=== PATIENT | male | born 1980 | race Hispanic/Latino ===

== ENCOUNTER 2018-01-29 13:03 | Observation (INO) | payer OTHER ==
[~2018-01-29] VITALS: Ht 182.9 cm; Wt 95.3 kg
--- NOTE | 2018-01-29 14:23 | ED GENERAL ADULT ---
History of Present Illness General Chief Complaint: Low Back Pain/Injury Stated Complaint: BIBA R HIP/SCIATIC PAIN Source: patient Exam Limitations: no limitations Vital Signs & Intake/Output Vital Signs & Intake/Output Vital Signs Date Time Temp Pulse Resp B/P B/P Pulse O2 O2 Flow FiO2 Mean Ox Delivery Rate 01/29 1829 98.0 78 18 132/84 100 Room Air Room Air 01/29 1521 Room Air 01/29 1354 97.0 98 18 125/86 98 Room Air Allergies Coded Allergies: No Known Allergies (01/29/18) Triage Note: R SCIATIC PAIN THAT RADIATES TO CALF, SEEN MONDAY AT WALK IN AND PUT ON PREDNISONE 20MG, FLEXERIL AND TYLENOL 1G WITHOUT ANY RELIEF. PAIN TO GLUTEUS SO BAD AT THIS POINT HE CANNOT WALK. DENIES LUMBOSACRAL PAIN OR INJURY. DENIES NUMBNESS. Triage Nurses Notes Reviewed? yes Onset: Gradual Duration: day(s): Timing: CONSTANT HPI: 37 y/o otherwise healthy male presenting with right low back pain radiating to the RLE x5 days. Reports the pain radiates to his mid calf, and is worse with movement. Began while walking, but denies any strenuous activity or trauma. Was seen at an urgent care and given tylenol, flexeril, and prednisone, which he has been taking around the clock without relief. States the pain is so bad now he can barely walk. Denies fevers, IVDU, saddle anestheisas, dysuria, urinary/bowel incontinence/retention. (Kemi Hardwick) Past History Travel History Traveled to [place] past 21 day No Medical History Any Pertinent Medical History? none Neurological: NONE EENT: NONE Cardiovascular: NONE Respiratory: NONE Gastrointestinal: NONE Hepatic: NONE Renal: NONE Musculoskeletal: NONE Psychiatric: NONE Endocrine: NONE Surgical History Surgical History: non-contributory Psychosocial History What is your primary language Czech Tobacco Use: Never used Family History Hx Contributory? No (Kemi Hardwick) Review of Systems Review of Systems Constitutional: Reports: no symptoms. EENTM: Reports: no symptoms. Respiratory: Reports: no symptoms. Cardiovascular: Reports: no symptoms. GI: Reports: no symptoms. Genitourinary: Reports: no symptoms. Musculoskeletal: Reports: see HPI. Skin: Reports: no symptoms. Neurological/Psychological: Reports: no symptoms. Hematologic/Endocrine: Reports: no symptoms. Immunologic/Allergic: Reports: no symptoms. All Other Systems: Reviewed and Negative (Obed REMY,Kemi) Physical Exam Physical Exam General Appearance: well developed/nourished, no apparent distress, alert, awake , comfortable Head: atraumatic, normal appearance Eyes: Bilateral: normal appearance. Neck: normal inspection, full range of motion, no midline tenderness Respiratory: normal breath sounds, lungs clear Cardiovascular: regular rate/rhythm Gastrointestinal: soft, non-tender Back: normal inspection, no vertebral tenderness, +TTP over right lower lumbar muscles, no midline TTP Decreased spinal ROM due to pain BLE's are NV intact Able to stand and weight bear, but difficulty ambulating. Extremities: normal inspection, normal range of motion Neurologic/Psych: awake, alert, oriented x 3, normal mood/affect Skin: intact, normal color, warm/dry Core Measures ACS in differential dx? No CVA/TIA Diagnosis: No Sepsis Present: No Sepsis Focused Exam Completed? No (Obed REMY,Kemi) Progress Differential Diagnoses I considered the following diagnoses in my evaluation of the patient: [MSK strain vs radiculopathy vs sciatic vs disc herniation, low concern for vertebral fx vs cauda equina vs epidural abscess] Plan of Care: Orders Procedure Date/time Status Regular Diet 01/29 D Active Patient Data 01/29 185 Active MRI-LUMBAR SPINE 01/29 1849 Active OXYGEN SETUP (GEN) 01/30 1848 Active Saline Lock 01/[address] in observation 01/29 184 Active Vital Signs 01/30 1848 Active Activity/Ambulation 01/30 1848 Active Code Status 01/30 1848 Active URINALYSIS 01/29 165 Complete Laboratory Tests 01/29/18 1659: Urine Color YEL, Urine Clarity CLEAR, Urine pH 7.0, Ur Specific [place] 1.010, Urine Protein NEG, Urine Ketones 15 H, Urine Nitrite NEG, Urine Bilirubin NEG, Urine Urobilinogen 1.0, Ur Leukocyte Esterase NEG, Ur Microscopic EXAM NOT REQUIRED, Urine Hemoglobin NEG, Urine Glucose NEG X-ray IMPRESSION: Mild degenerative disc disease at L5-S1. No fracture. UA unremarkable Patient's pain has been intractable despite Toradol, Tylenol, oxycodone 2, prednisone, Valium, Flexeril and Lidoderm patch. Patient is unable to bear weight or ambulate still. Will admit to gen med for intractable back pain. Initial ED EKG: none (Kemi Hardwick) Departure Departure Disposition: STILL A PATIENT Condition: Stable Clinical Impression Primary Impression: Lumbar radiculopathy Departure Forms: Customer Survey General Discharge Information Observation Note Spoke With: Ramos Moreno MD Physician Advisor Notified: SACHIN MILES,LING Villanueva (case management) Place Patient In: Non-ED OBS Care Area Rationale for Observation: My rational for observation is as follows [continue pain medications, physical therapy consult, MRI]. (Kemi Hardwick) PA/BPM DEVELOPER Co-Sign Statement Statement: ED Attending supervision documentation- x I saw and evaluated the patient. I have also reviewed all the pertinent lab results and diagnostic results. I agree with the findings and the plan of care as documented in the PA's/BPM DEVELOPER's documentation. Intractable pain, unable to get out of wheelchair or bed despite interventions. [] I have reviewed the ED Record and agree with the PA's/BPM DEVELOPER's documentation. [] Additions or exceptions (if any) to the PAs/BPM DEVELOPER's note and plan are summarized below: [] (Jin Larson MD) Critical Care Note Critical Care Note Critical Care Time: non-applicable (Kemi Hardwick)
--- NOTE | 2018-01-29 15:42 | RADIOLOGY REPORT ---
EXAMINATION: XR LUMBOSACRAL SPINE CLINICAL INFORMATION: Disc herniation versus fracture. Back pain radiating to right leg. COMPARISON: None TECHNIQUE: 4 views of the lumbosacral spine were obtained. FINDINGS: Alignment is anatomic. The vertebral body heights are well maintained. Mild degenerative disc space narrowing at L5-S1. No pars defect or significant facet arthropathy. IMPRESSION: Mild degenerative disc disease at L5-S1. No fracture.
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
[2018-01-29 22:00] VITALS: BP 142/87
[2018-01-30 06:30] VITALS: BP 131/81
--- NOTE | 2018-01-30 07:36 | PN- Housestaff ---
See Addendum Subjective Follow-up For: Back pain Subjective: The patient was seen and examined at bedside. He says he still cannot get out of bed. He reports his range of motion is intact but he cannot bear weight on his leg. He reports that the pain is pressure like in the calf with some intermittent tingling in his toes. He denies fever, chills, nausea, vomiting, bowel or bladder incontinence. Review of Systems Constitutional: Reports: see HPI. Objective Last 24 Hrs of Vital Signs/I&O Vital Signs Date Time Temp Pulse Resp B/P B/P Pulse O2 O2 Flow FiO2 Mean Ox Delivery Rate 01/30 1408 97.5 84 18 151/89 100 Room Air 01/30 0630 97.6 79 20 131/81 100 Room Air 01/29 2200 98.0 97 18 142/87 98 Room Air 01/29 2123 98.8 92 20 157/85 99 Room Air 01/29 1829 98.0 78 18 132/84 100 Room Air Room Air 01/29 1521 Room Air Intake & Output 01/30 1600 01/30 0800 01/30 0000 Intake Total 740 220 120 Output Total 750 Balance -10 220 120 Intake, IV 20 Intake, Oral 740 200 120 Number 0 Bowel Movements Output, Urine 750 Patient 210 lb Weight Physical Exam General Appearance: Alert, Oriented X3, Cooperative, No Acute Distress Skin: No Rashes Neck: Supple Cardiovascular: Regular Rate, Normal S1, Normal S2 Lungs: Clear to Auscultation Abdomen: Normal Bowel Sounds, Soft, No Tenderness Extremities: no tenderness in RLE, sensation intact , SLR -ve LARA test -ve Last 24 Hrs of Lab/Christopher Results Last 24 Hrs of Labs/Mics: Assessment/Plan Assessment: Mr. Donis is a 37M with no significant medical history who presents with intractable R gluteal pain associated with R leg cramping. He does not have alarm symptoms, denies IVDU, no fevers, no trauma. He is unable to walk 2/2 pain. There is unilateral pain, without radiation to the distal extremity. He has no focal neuro deficits or weakness on exam. Problem List 1.R gluteal pain 2.DJD L5-S1 1.Sciatica vs Piriformis syndrome -Under observation -He could not complete PT evaluation because of extreme pain -Pain control with Medrol dose pack, Valium and Flexiril. The patient denied opiod prescription. -pending MRI, no capabilities today. Can consider outpt if pt is able to ambulate/stable The patient is under observation. He would be discharged home later in the evening, and would follow up with an outpatient MRI. DVT ppx: ALPS, no need for heparin IV Access Regular Diet FC Dispo: Home Problem List: 1. Gluteal pain 2. Intermittent tingling sensation of right hand and foot Pain Ratin (on walking) Pain Location: gluteal region and right leg Pain Goal: Pain 4 or less Pain Plan: pathway Tomorrow's Labs & Rationales: na
[2018-01-30 14:08] VITALS: BP 151/89
[2018-01-30 21:18] VITALS: BP 138/96
[2018-01-31 06:35] VITALS: BP 140/89
--- NOTE | 2018-01-31 07:43 | PN- Housestaff ---
Luz Marina Finch 01/31/18 0743: Subjective Follow-up For: Intractable back pain Subjective: Patient was seen and examined at bedside. He says he hs drastically improved since yesterday. His pain is a zero at rest and a 1/10 while walking. He says he independently used the bathroom in the morning today. He denies any fever, chills, pain radiation, numbness, tingling, bowel bladder incontinence or anaesthesia in his back or lower limbs. Review of Systems Constitutional: Reports: see HPI. Objective Last 24 Hrs of Vital Signs/I&O Vital Signs Date Time Temp Pulse Resp B/P B/P Pulse O2 O2 Flow FiO2 Mean Ox Delivery Rate 01/31 1421 100.0 89 20 144/98 100 Room Air 01/31 0635 97.9 64 20 140/89 98 Room Air 01/30 2118 98.0 79 18 138/96 98 Intake & Output 01/31 1600 01/31 0800 01/31 0000 Intake Total 750 480 410 Output Total 550 375 Balance 200 480 35 Intake, IV 0 10 Intake, Oral 750 480 400 Number 0 Bowel Movements Output, Urine 550 375 Physical Exam General Appearance: Alert, Oriented X3, Cooperative, No Acute Distress Skin: No Rashes, No Breakdown Neck: Supple Cardiovascular: Regular Rate, Normal S1, Normal S2, No Murmurs Lungs: Clear to Auscultation, Normal Air Movement Abdomen: Normal Bowel Sounds, Soft, No Tenderness, No Hepatospenomegaly Extremities: No Edema, Normal Pulses, No Tenderness/Swelling, ROM intact Assessment/Plan Assessment: Mr. Donis is a 37M with no significant medical history who presents with intractable R gluteal pain associated with R leg cramping.He has drastically improved today. He has been independently walking since morning. He does not report any alarming symptoms. No focal neuro deficits on examination. An MRI was done earlier in the day with the following impression: - At L5-S1, there is a right lateral disc protrusion that results in severe right-sided foraminal stenosis and compression of the exiting right L5 nerve root. There is also a shallow central disc protrusion at this level that mildly indents the ventral epidural fat without central canal stenosis nor mass effect on the traversing S1 nerve roots. Problem List 1.R gluteal pain 2.DJD L5-S1 1.Sciatica vs Piriformis syndrome -Under observation -Pain control with Medrol dose pack, Valium and Flexiril. The patient denied opiod prescription. Pain is well controlled on the prescribed regimen. -The patient was counselled about the possibility of outcome of his acute cord compression. He opted to be discharged from the hospital and follow up with a neurosurgeon outpatient. DVT ppx: ALPS, no need for heparin IV Access Regular Diet FC Dispo: Home Problem List: 1. Gluteal pain 2. Lumbar radiculopathy 3. Spinal cord compression Pain Ratin Pain Location: Right gluteal region Pain Goal: Remain pain free Pain Plan: na Tomorrow's Labs & Rationales: bernabe YatesKerwinregulo 01/31/18 1103: Attending MD Review Statement Attending Statement Attending MD Statement: examined this patient, discuss w/resident/PA/ICE RESURFACING MACHINE OPERATORS, agreed w/resident/PA/ICE RESURFACING MACHINE OPERATORS, discussed with family, reviewed EMR data (avail), discussed with nursing, discussed with case mgmt, reviewed images, amended to note Attending Assessment/Plan: 37 o/m with acute compression of nerve root and severe pain in his leg requiring multiple medications with moderate relief. MRI noted. Physical therapy evaluation and pain control. Consider neurosurgery referral as outpatient if no improvement.
--- NOTE | 2018-01-31 09:51 | MRI REPORT ---
EXAMINATION: MR LUMBAR SPINE WITHOUT CONTRAST CLINICAL INFORMATION: Intractable back pain. COMPARISON: Lumbar spine radiographs 01/29/2018. TECHNIQUE: MRI of the lumbar spine without contrast was obtained using routine sequences. FINDINGS: Motion degraded study. There are 5 nonrib-bearing lumbar-type vertebral bodies. Lumbar alignment is normal. The vertebral body heights are maintained. There is mild disc volume loss and partial disc desiccation at L5-S1. The remaining disc volumes are preserved and the remaining discs remain well-hydrated. There is no bone marrow edema. There are no acute fractures. Conus terminates at the L1 level. Soft tissues are not well assessed given the degree of motion artifact. At L5-S1, there is a right lateral disc protrusion that results in severe right-sided foraminal stenosis and compression of the exiting right L5 nerve root. There is also a shallow central disc protrusion at this level that mildly indents the ventral epidural fat without central canal stenosis nor mass effect on the traversing S1 nerve roots. Mild left-sided foraminal encroachment at this level. The L1-L2, L2-L3, L3-L4, and L4-L5 disc contours are normal. There is no central canal stenosis and there is no foraminal stenosis at these levels. IMPRESSION: - At L5-S1, there is a right lateral disc protrusion that results in severe right-sided foraminal stenosis and compression of the exiting right L5 nerve root. There is also a shallow central disc protrusion at this level that mildly indents the ventral epidural fat without central canal stenosis nor mass effect on the traversing S1 nerve roots. - The remaining lumbar disc contours are normal.
[2018-01-31] MEDS ORDERED: CYCLOBENZAPRINE5 M2 PO (14:07)
[2018-01-31] MEDS ORDERED: DIAZEPAM5 M1 PO (14:07)
[2018-01-31] MEDS ORDERED: MEDROL4 M2 PO (14:07)
--- NOTE | 2018-01-31 14:11 | Patient Discharge Instructions ---
See Addendum Discharge Instructions General Discharge Information Watch for these problems: Worsening back pain, numbness or tingling in the legs, bladder of bowel incontinence, lower limb weakness. If you notice any of the above symptoms, please report to the ER immediately. Special Instructions: 1. Please see a neurosurgeon as soon as you can. 2. Please see your PCP within 2-3 days of discharge. Acute Coronary Syndrome Inclusion Criteria At DC or during hospital stay patient has or had the following: ACS DIAGNOSIS No Discharge Core Measures Meds if any: Prescribed or Continued at Discharge Meds if any: NOT Prescribed or Continued at Discharge Congestive Heart Failure Inclusion Criteria At DC or during hospital stay patient has or had the following: CHF DIAGNOSIS No Discharge Core Measures Meds if any: Prescribed or Continued at Discharge Meds if any: NOT Prescribed or Continued at Discharge Cerebrovascular accident Inclusion Criteria At DC or during hospital stay patient has or had the following: CVA/TIA Diagnosis No Discharge Core Measures Meds if any: Prescribed or Continued at Discharge Meds if any: NOT Prescribed or Continued at Discharge Venous thromboembolism Inclusion Criteria VTE Diagnosis No VTE Type NONE VTE Confirmed by (Test) NONE Discharge Core Measures - Per Current guidelines, there needs to be overlap - treatment for the first 5 days of Warfarin therapy. - If discharged on Warfarin prior to 5 days of - overlap therapy, the patient will need to be - assessed for post discharge needs including - *Post discharge parental anticoagulation - *Warfarin and/or parental anticoagulation education - *Follow up date to check INR post discharge At least 5 days overlap therapy as Inpatient No Meds if any: Prescribed or Continued at Discharge Note: Overlap Therapy is Warfarin and Anticoagulant Meds if any: NOT Prescribed or Continued at Discharge
[2018-01-31 14:21] VITALS: BP 144/98
== END 2018-01-31 16:04 ==
LOC: ERH 13:03 → ERHI 18:48 → 2NB 18:48 → ENRESERV 20:34 → ENTRNSPT 21:15 → EDTRNSPT 21:22 → EDTRNSPTSTS 21:22 → 2NB 21:25 → CMPTRNSPT 21:39 → 2NB 01-30 07:26 → ENTRNSPT 01-31 15:55 → 2NB 01-31 16:04 → CMPTRNSPT 01-31 16:08
DX: M54.16 Radiculopathy, lumbar region (principal)
CPT/HCPCS: 72148; 72110; 81003; 96372; 97161-GP; 97530-GP; G0378; J1650; J1885; J3360